=== PATIENT | male | born 1980 | race Caucasian/White ===

== ENCOUNTER 2017-04-16 01:16 | Emergency (ER) | payer BC ==
--- NOTE | 2017-04-16 01:31 | EDM.PDOCBH ---
ED HPI GENERAL MEDICAL PROBLEM - General Chief Complaint: Drug or Alcohol Abuse Stated Complaint: MEDICAL CLEARENCE Time Seen by Provider: 04/16/17 01:29 Source of Information: Reports: Patient, Police History Limitations: Reports: No Limitations - History of Present Illness INITIAL COMMENTS - FREE TEXT/NARRATIVE: 36-year-old male presents the ED handcuffed behind his back after being apprehended by police officers. Barely had a blood alcohol level of 0.30 on breathalyzer. He was therefore brought to the ED for medical clearance examination. Patient states he really didn't have anything to drink recently which of course is a bolt that live. However he is alert and answering all questions quite appropriately. He is minimally dysarthric. Minimally ataxic on examination. Indocin throat exam is normal chest is clear postage percussion heart was sinus tachycardia without any murmurs. Abdomen is benign. There is no sign of trauma or injuries. He states he takes no medications and has no allergies. Denies any previous surgeries. Onset: Today (Apprehended by police after closure of the bar.) Onset Date: 04/16/17 Onset Time: 01:00 Duration: Minutes: Location: Reports: Generalized Quality: Reports: Other Severity: Moderate (Brought to the ED for medical clearance examination due to acute alcohol intoxication.) Improves with: Reports: None Worsens with: Reports: None Context: Reports: Other (Brought to the ED for medical clearance examination is healed under arrest for driving under the influence.). 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 [No Known Home Meds] 04/16/17 [History] Past Medical History - Past Health History Medical/Surgical History: Denies Medical/Surgical History Social & Family History - Tobacco Use Smoking Status *Q: Current Every Day Smoker Years of Tobacco use: 1 Packs/Tins Daily: 0.5 - Caffeine Use Caffeine Use: Reports: None - Recreational Drug Use Recreational Drug Use: No - Living Situation & Occupation Living situation: Reports: Single Occupation: Employed ED ROS GENERAL - Review of Systems Review Of Systems: See Below Constitutional: Reports: No Symptoms HEENT: Reports: No Symptoms Respiratory: Reports: No Symptoms Cardiovascular: Reports: No Symptoms Endocrine: Reports: No Symptoms GI/Abdominal: Reports: No Symptoms : Reports: No Symptoms Musculoskeletal: Reports: No Symptoms Skin: Reports: No Symptoms Neurological: Reports: No Symptoms Psychiatric: Reports: No Symptoms Hematologic/Lymphatic: Reports: No Symptoms Immunologic: Reports: No Symptoms ED EXAM, BEHAVIORAL HEALTH - Physical Exam Exam: See Below Exam Limited By: No Limitations General Appearance: Alert, WD/WN, No Apparent Distress, Other (Patient answers all questions appropriately. Speech is minimally dysarthric. He makes good eye contact. Breath smells strongly of alcohol.) Eye Exam: Bilateral Eye: Normal Inspection, Nystagmus (On lateral gaze bilaterally) Throat/Mouth: Normal Inspection, Normal Lips, Normal Oropharynx Head: Atraumatic, Normocephalic Neck: Normal Inspection, Supple, Non-Tender, Full Range of Motion. No: Carotid Bruit, Lymphadenopathy (L), Lymphadenopathy (R), Thyromegaly Respiratory/Chest: No Respiratory Distress, Lungs Clear, Normal Breath Sounds, No Accessory Muscle Use, Chest Non-Tender Cardiovascular: Normal Peripheral Pulses, Regular Rate, Rhythm, No Edema, No Gallop, No Murmur, No Rub, Tachycardia GI/Abdominal: Normal Bowel Sounds (Mild tachycardia at rest 1 16/m), Soft, Non- Tender, No Organomegaly, No Abnormal Bruit, No Mass Extremities: Normal Inspection, Normal Range of Motion, Non-Tender, No Pedal Edema, Other Neurological: Alert (Hands are cuffed behind his back the entire interview.), Normal Mood/Affect, CN II-XII Intact, Normal Cognition, No Motor/Sensory Deficits, Oriented x 3, Ataxia (Mild ataxic gait.) Psychiatric: Alert, Normal Affect, Other (Very cooperative considering the situation 90s in.) Skin Exam: Warm, Dry, Intact, Normal color, No rash COURSE, BEHAVIORAL HEALTH COMP - Course Vital Signs: Last Vital Signs Temp 36.6 C 04/16/17 01:21 Pulse 116 H 04/16/17 01:21 Resp 16 04/16/17 01:21 BP 142/109 H 04/16/17 01:21 Pulse Ox 96 04/16/17 01:21 Re-Assessment/Re-Exam: 36-year-old male brought to the ED for medical clearance examination.. He was apprehended after the bar closed driving his vehicle. He blew 0.30 in the breathalyzer. He states that he does not take any medications and is not allergic to any. He's not had any previous surgeries. He's alert he's oriented easy answers all questions quite appropriately and is quite cooperative. Examination revealed no abnormalities in particular no signs of trauma or recent injuries to the head or neck. No emergency condition was identified. He was therefore discharged into police custody and cleared for detox. Departure - Departure Time of Disposition: :29 Disposition: Home, Self-Care 01 Condition: Fair Clinical Impression: Acute alcohol intoxication - Discharge Information Referrals: Debbi Felix PA [Primary Care Provider] - Additional Instructions: Evaluated in the emergency room this morning at the request of the police officers for medical clearance examination. History suggests that you blue 0.30 blood alcohol content through breathalyzer. You are alert and oriented and able to answer all questions quite normally. You have no underlying serious illnesses that required medication use. Therefore you're released back into police custody. Cleared for admission to [facility] for detox. No emergency condition identified on examination.
== END 2017-04-16 01:35 | disposition home or self-care (01) ==
LOC: JD.ED 01:16
DX: F10.129 Alcohol abuse with intoxication, unspecified (principal); F17.210 Nicotine dependence, cigarettes, uncomplicated
CPT/HCPCS: 99283